=== PATIENT | female | born 1945 | race Caucasian/White ===

== ENCOUNTER → 2020-08-24 13:45 | Outpatient (BNVA) | payer MEDICARE, SELFPAY | PROVIDERS: Visit Provider Internal Medicine | DX: M35.3 Polymyalgia rheumatica (principal); M19.90 Unspecified osteoarthritis, unspecified site; Z11.59 Encounter for screening for other viral diseases; R10.31 Right lower quadrant pain; N28.1 Cyst of kidney, acquired | CPT/HCPCS: 99204 ==